=== PATIENT | female | born 1935 | race Caucasian/White ===

== ENCOUNTER 2017-11-10 15:46 | Inpatient (IN) | payer MEDICARE, OTHER ==
[2017-11-10] MEDS ORDERED: ACETAMINOPHEN 325 MG TAB PO (16:30)
[2017-11-10] MEDS ORDERED: LACTULOSE 30ML CUP PO (16:30)
[2017-11-10 16:58] LABS: ADD UMIC YES; UR ASCORBIC ACID NEGATIVE (NEGATIVE); UR BILIRUBIN (Dip) NEGATIVE (NEGATIVE); UR BLOOD (Dip) 2+ mg/dL (NEGATIVE); UR CLARITY CLEAR (CLEAR); UR COLOR COLORLESS (YELLOW); UR GLUCOSE (Dip) NEGATIVE (NEGATIVE); UR KETONES (Dip) NEGATIVE (NEGATIVE); UR LEUKOCYTE ESTERASE (Dip) NEGATIVE Leu/ul (NEGATIVE); UR NITRITE (Dip) NEGATIVE (NEGATIVE); UR RBC 1 /HPF (0-5); UR SPECIFIC GRAVITY (Dip) 1.002 (1.003-1.030); UR TOTAL PROTEIN (Dip) NEGATIVE (NEGATIVE); UR UROBILINOGEN (Dip) NEGATIVE (NEGATIVE); UR WBC 1 /HPF (0-5)
[2017-11-10] MEDS: DOCUSATE SODIUM 10 MG/ML (10ML CUP) PO (21:00)
[2017-11-10] MEDS: ATORVASTATIN 80 MG TAB PO (21:00)
[2017-11-10] MEDS: SENNA TAB PO (21:00)
[2017-11-11 06:40] LABS: ADD MAN DIFF? NO
[2017-11-11 06:49] LABS: WHITE BLOOD COUNT 5.2 10^3/ul (4.8-10.8)
[2017-11-11 06:49] LABS: BASOPHILS % 0.8 % (0.0-2.0); EOSINOPHILS # 0.3 10^3/ul (0.0-0.5); EOSINOPHILS % 5.3 % (0.0-7.0); HEMATOCRIT 41.8 % (37.0-47.0); LYMPHOCYTES % 18.5 % (15.0-51.0); MEAN CORPUSCULAR HGB CONC 33.5 g/dl (32.0-37.0); MEAN CORPUSCULAR VOLUME 86.7 fl (82.0-101.0); MEAN PLATELET VOLUME 11.1 fl (7.4-10.4); MONOCYTE # 0.5 10^3/ul (0.3-0.9); MONOCYTES % 9.7 % (0.0-11.0); NEUTROPHIL # 3.4 10^3/ul (1.6-7.5); NEUTROPHILS % 65.3 % (39.0-77.0); PLATELET COUNT 163 10^3/UL (140-415); RED BLOOD COUNT 4.82 10^6/ul (4.20-5.40); RED CELL DISTRIBUTION WIDTH 13.1 % (11.5-14.5)
[2017-11-11 07:00] LABS: ALANINE AMINOTRANSFERASE 31 IU/L (13-69); ALBUMIN 3.3 g/dl (3.3-4.9); ALBUMIN/GLOBULIN RATIO 1.13; ALKALINE PHOSPHATASE 80 IU/L (42-121); ANION GAP 11 (8-16); ASPARTATE AMINO TRANSFERASE 26 IU/L (15-46); BILIRUBIN,INDIRECT 0.7 mg/dl (0-1.1); BILIRUBIN,TOTAL 0.7 mg/dl (0.2-1.3); BLOOD UREA NITROGEN 18 mg/dl (7-20); CALCIUM 9.2 mg/dl (8.4-10.2); CARBON DIOXIDE 32 mmol/L (21-31); CHLORIDE 105 mmol/L (97-110); GLUCOSE 109 mg/dl (70-220); SODIUM 144 mmol/L (135-144); TOTAL PROTEIN 6.2 g/dl (6.1-8.1)
[2017-11-11 09:22] LABS: ADD UMIC YES; UR ASCORBIC ACID NEGATIVE (NEGATIVE); UR BILIRUBIN (Dip) NEGATIVE (NEGATIVE); UR BLOOD (Dip) 2+ mg/dL (NEGATIVE); UR CLARITY SLIGHTLY CLOUDY (CLEAR); UR COLOR YELLOW (YELLOW); UR GLUCOSE (Dip) NEGATIVE (NEGATIVE); UR KETONES (Dip) NEGATIVE (NEGATIVE); UR LEUKOCYTE ESTERASE (Dip) 1+ Leu/ul (NEGATIVE); UR NITRITE (Dip) NEGATIVE (NEGATIVE); UR RBC 5 /HPF (0-5); UR SPECIFIC GRAVITY (Dip) 1.018 (1.003-1.030); UR SQUAMOUS EPITHELIAL CELL FEW /HPF (FEW); UR TOTAL PROTEIN (Dip) NEGATIVE (NEGATIVE); UR UROBILINOGEN (Dip) 1+ mg/dL (NEGATIVE); UR WBC 7 /HPF (0-5)
[2017-11-11] MEDS: DOCUSATE SODIUM 10 MG/ML (10ML CUP) PO ×2 (09:23→21:00)
[2017-11-11] MEDS: ASPIRIN 81 MG TAB PO (09:23)
[2017-11-11] MEDS: AMLODIPINE 5 MG TAB GTB (09:23)
[2017-11-11] MEDS: MAGNESIUM HYDROXIDE 30ML CUP PO (09:26)
[2017-11-11] MEDS: SENNA TAB PO (21:00)
[2017-11-11] MEDS: ATORVASTATIN 80 MG TAB PO (21:00)
[2017-11-12] MEDS: ASPIRIN 81 MG TAB PO (08:12)
[2017-11-12] MEDS: AMLODIPINE 5 MG TAB GTB (08:13)
[2017-11-12] MEDS: DOCUSATE SODIUM 10 MG/ML (10ML CUP) PO ×2 (08:13→21:00)
[2017-11-12] MEDS: FAMOTIDINE 20 MG TAB PO (08:13)
[2017-11-12] MEDS: ATORVASTATIN 80 MG TAB PO (20:39)
[2017-11-12] MEDS: SENNA TAB PO (21:00)
[2017-11-13] MEDS: DOCUSATE SODIUM 10 MG/ML (10ML CUP) PO ×2 (09:06→20:27)
[2017-11-13] MEDS: ASPIRIN 81 MG TAB PO (09:06)
[2017-11-13] MEDS: FAMOTIDINE 20 MG TAB PO (09:06)
[2017-11-13] MEDS: AMLODIPINE 5 MG TAB GTB (09:07)
[2017-11-13] MEDS: SENNA TAB PO (20:27)
[2017-11-13] MEDS: ATORVASTATIN 80 MG TAB PO (20:27)
[2017-11-14 08:17] LABS: ADD MAN DIFF? NO
[2017-11-14 08:23] LABS: BASOPHILS % 0.5 % (0.0-2.0); EOSINOPHILS # 0.3 10^3/ul (0.0-0.5); EOSINOPHILS % 4.3 % (0.0-7.0); HEMOGLOBIN 13.3 g/dl (12.0-16.0); LYMPHOCYTES # 1.2 10^3/ul (0.8-2.9); LYMPHOCYTES % 18.1 % (15.0-51.0); MEAN CORPUSCULAR HEMOGLOBIN 28.8 pg (29.0-33.0); MEAN CORPUSCULAR HGB CONC 33.3 g/dl (32.0-37.0); MEAN CORPUSCULAR VOLUME 86.6 fl (82.0-101.0); MEAN PLATELET VOLUME 11.5 fl (7.4-10.4); MONOCYTE # 0.6 10^3/ul (0.3-0.9); MONOCYTES % 8.7 % (0.0-11.0); NEUTROPHIL # 4.5 10^3/ul (1.6-7.5); NEUTROPHILS % 67.8 % (39.0-77.0); PLATELET COUNT 169 10^3/UL (140-415); RED BLOOD COUNT 4.62 10^6/ul (4.20-5.40); RED CELL DISTRIBUTION WIDTH 13.3 % (11.5-14.5)
[2017-11-14 08:23] LABS: WHITE BLOOD COUNT 6.6 10^3/ul (4.8-10.8)
[2017-11-14 09:11] LABS: ALANINE AMINOTRANSFERASE 21 IU/L (13-69); ALBUMIN 3.3 g/dl (3.3-4.9); ALBUMIN/GLOBULIN RATIO 1.17; ALKALINE PHOSPHATASE 85 IU/L (42-121); ANION GAP 9 (8-16); ASPARTATE AMINO TRANSFERASE 27 IU/L (15-46); BILIRUBIN,INDIRECT 0.3 mg/dl (0-1.1); BILIRUBIN,TOTAL 0.3 mg/dl (0.2-1.3); BLOOD UREA NITROGEN 14 mg/dl (7-20); CALCIUM 9.3 mg/dl (8.4-10.2); CARBON DIOXIDE 33 mmol/L (21-31); CHLORIDE 104 mmol/L (97-110); CREATINE KINASE 36 IU/L (23-200); CREATININE 0.71 mg/dl (0.44-1.00); GLUCOSE 101 mg/dl (70-220); MAGNESIUM 2.3 mg/dl (1.7-2.5); POTASSIUM 4.2 mmol/L (3.5-5.1); SODIUM 142 mmol/L (135-144); TOTAL PROTEIN 6.1 g/dl (6.1-8.1)
[2017-11-14 09:50] LABS: CHOLESTEROL 148 mg/dl (100-200)
[2017-11-14 09:50] LABS: CHOL/HDL RATIO 2.2 RATIO; HDL CHOLESTEROL 66 mg/dl (33-92); LDL CHOLESTEROL,CALCULATED 66 mg/dl; TRIGLYCERIDES 82 mg/dl (0-149)
[2017-11-14] MEDS: DOCUSATE SODIUM 10 MG/ML (10ML CUP) PO ×2 (10:56→21:00)
[2017-11-14] MEDS: AMLODIPINE 5 MG TAB GTB (10:56)
[2017-11-14] MEDS: ASPIRIN 81 MG TAB PO (10:56)
[2017-11-14] MEDS: FAMOTIDINE 20 MG TAB PO (10:56)
[2017-11-14 17:23] LABS: FREE T4 (FREE THYROXINE) 1.35 ng/dl (0.85-1.93)
[2017-11-14] MEDS: FUROSEMIDE 40 MG INJ IV (18:36)
[2017-11-14 19:18] LABS: B-TYPE NATRIURETIC PEPTIDE 291 PG/ML (0-450)
[2017-11-14] MEDS: SENNA TAB PO (21:00)
[2017-11-14] MEDS: ATORVASTATIN 80 MG TAB PO (21:00)
[2017-11-15] MEDS: ASPIRIN 81 MG TAB PO (09:06)
[2017-11-15] MEDS: FAMOTIDINE 20 MG TAB PO (09:08)
[2017-11-15] MEDS: AMLODIPINE 2.5 MG TAB GTB (09:12)
[2017-11-15] MEDS: FUROSEMIDE 20 MG TAB PO (09:43)
[2017-11-15] MEDS: DOCUSATE SODIUM 100 MG CAP PO ×2 (09:44→21:23)
[2017-11-15] MEDS: HYDROCHLOROTHIAZIDE 12.5 MG CAP PO (09:46)
[2017-11-15] MEDS: ATORVASTATIN 80 MG TAB PO (21:00)
[2017-11-15] MEDS: SENNA TAB PO (21:23)
[2017-11-16] MEDS: FUROSEMIDE 20 MG TAB PO (08:38)
[2017-11-16] MEDS: DOCUSATE SODIUM 100 MG CAP PO ×2 (08:38→20:30)
[2017-11-16] MEDS: AMLODIPINE 2.5 MG TAB GTB (08:38)
[2017-11-16] MEDS: FAMOTIDINE 20 MG TAB PO (08:39)
[2017-11-16] MEDS: HYDROCHLOROTHIAZIDE 12.5 MG CAP PO (08:39)
[2017-11-16] MEDS: ASPIRIN 81 MG TAB PO (08:39)
[2017-11-16] MEDS: BISACODYL 10 MG SUPP PR (15:45)
[2017-11-16] MEDS: ATORVASTATIN 80 MG TAB PO (20:30)
[2017-11-16] MEDS: SENNA TAB PO (20:31)
[2017-11-17 07:11] LABS: B-TYPE NATRIURETIC PEPTIDE 169 PG/ML (0-450)
[2017-11-17 07:15] LABS: ALANINE AMINOTRANSFERASE 83 IU/L (13-69); ALBUMIN 3.6 g/dl (3.3-4.9); ALBUMIN/GLOBULIN RATIO 1.16; ALKALINE PHOSPHATASE 136 IU/L (42-121); ANION GAP 13 (8-16); ASPARTATE AMINO TRANSFERASE 56 IU/L (15-46); BILIRUBIN,INDIRECT 0.5 mg/dl (0-1.1); BILIRUBIN,TOTAL 0.5 mg/dl (0.2-1.3); BLOOD UREA NITROGEN 16 mg/dl (7-20); CALCIUM 9.2 mg/dl (8.4-10.2); CARBON DIOXIDE 35 mmol/L (21-31); CHLORIDE 93 mmol/L (97-110); CREATININE 0.85 mg/dl (0.44-1.00); GLUCOSE 111 mg/dl (70-220); MAGNESIUM 2.2 mg/dl (1.7-2.5); POTASSIUM 3.8 mmol/L (3.5-5.1); SODIUM 137 mmol/L (135-144); TOTAL PROTEIN 6.7 g/dl (6.1-8.1)
[2017-11-17] MEDS: DOCUSATE SODIUM 100 MG CAP PO ×2 (09:00→21:00)
[2017-11-17] MEDS: FUROSEMIDE 20 MG TAB PO (09:00)
[2017-11-17] MEDS: ASPIRIN 81 MG TAB PO (09:01)
[2017-11-17] MEDS: FAMOTIDINE 20 MG TAB PO (09:02)
[2017-11-17] MEDS: AMLODIPINE 2.5 MG TAB GTB (09:03)
[2017-11-17] MEDS: HYDROCHLOROTHIAZIDE 12.5 MG CAP PO (09:03)
[2017-11-17] MEDS: SENNA TAB PO (21:00)
[2017-11-17] MEDS: ATORVASTATIN 80 MG TAB PO (21:33)
[2017-11-18] MEDS: DOCUSATE SODIUM 100 MG CAP PO (08:23)
[2017-11-18] MEDS: ASPIRIN 81 MG TAB PO (08:24)
[2017-11-18] MEDS: FAMOTIDINE 20 MG TAB PO (08:24)
[2017-11-18] MEDS: HYDROCHLOROTHIAZIDE 12.5 MG CAP PO (08:24)
[2017-11-18] MEDS: FUROSEMIDE 20 MG TAB PO (08:24)
[2017-11-18] MEDS: AMLODIPINE 2.5 MG TAB GTB (09:00)
[2017-11-18 09:30] LABS: ALANINE AMINOTRANSFERASE 64 IU/L (13-69); ALBUMIN 3.8 g/dl (3.3-4.9); ALBUMIN/GLOBULIN RATIO 1.11; ALKALINE PHOSPHATASE 137 IU/L (42-121); ANION GAP 11 (8-16); ASPARTATE AMINO TRANSFERASE 40 IU/L (15-46); BILIRUBIN,INDIRECT 0.4 mg/dl (0-1.1); BILIRUBIN,TOTAL 0.4 mg/dl (0.2-1.3); BLOOD UREA NITROGEN 21 mg/dl (7-20); CALCIUM 9.4 mg/dl (8.4-10.2); CARBON DIOXIDE 38 mmol/L (21-31); CHLORIDE 92 mmol/L (97-110); GLUCOSE 142 mg/dl (70-220); POTASSIUM 3.8 mmol/L (3.5-5.1); SODIUM 137 mmol/L (135-144); TOTAL PROTEIN 7.2 g/dl (6.1-8.1)
== END 2017-11-18 12:30 | disposition home health service (06) | DRG 56 ==
LOC: VRC 11-12 16:12
DX: I69.951 Hemiplegia and hemiparesis following unspecified cerebrovascular disease affecting right dominant side (principal); G93.40 Encephalopathy, unspecified; I69.920 Aphasia following unspecified cerebrovascular disease; I10 Essential (primary) hypertension; F06.31 Mood disorder due to known physiological condition with depressive features; F01.50 Vascular dementia, unspecified severity, without behavioral disturbance, psychotic disturbance, mood disturbance, and anxiety; I49.9 Cardiac arrhythmia, unspecified; K59.00 Constipation, unspecified; E78.5 Hyperlipidemia, unspecified; D69.6 Thrombocytopenia, unspecified; M19.90 Unspecified osteoarthritis, unspecified site; Z79.82 Long term (current) use of aspirin
CPT/HCPCS: 71045; 80053; 80061; 81001; 82550; 83036; 83735; 83880; 84439; 84443; 85025; 87081; 87086; 92507; 92610; 93005; 93306; 97110; 97112; 97116; 97150; 97163; 97167; 97530; 97535